=== PATIENT | male | born 1985 | race Caucasian/White ===

== ENCOUNTER → 2016-06-14 | Day surgery (SDC) | payer MEDICAID ==
[~2016-06-14] MED LIST: FLUMAZENIL 0.5 MG/5 ML MDV IVP ONE; IOPAMIDOL (ISOVUE-M 300) 15 ML VIAL IV ONE; MIDAZOLAM 2 MG/2 ML VIAL ONE; NALOXONE HCL 0.4 MG/ML INJ ONE; TRIAMCINOLONE ACETONIDE 200 MG/5 ML MDV IM ONE; fentaNYL 100 MCG/2 ML INJ ONE
--- NOTE | 2016-06-14 18:13 | IR ---
Lumbar epidural steroid injection with fluoroscopic guidance History: Low back pain. Pain in right buttock. Disk abnormality at L5-S1 reported on MRI from [facility] of May 04, 2016. Consent: Risks and benefits of the procedure were discussed in detail. Informed consent was obtained . The patient accepted risks of lack of therapeutic benefit, internal bleeding, infection, and accide ntal dural puncture. Medication: Local anesthetic, only, at the preference of the patient. Technique: With the patient prone, the low back was prepped and draped in sterile fashion. Using [facility] fluor[facility] guidance, 1% Xylocaine was instilled for local anesthetic. A 20-gauge ToPlayrific need le was advanced into the back of the spinal canal via the L5-S1 interlaminar space. Epidural position was confirmed with 2 mL of Isovue M 300. Spot images were obtained before and after injection of 2 m L of Kenalog (80 mg) and 3 mL of preservative-free 1% Xylocaine. The patient tolerated the procedure well. He was allowed to leave the department after a brief observation. Fluoroscopy time in minutes: 0.5 Estimated exposure in milligray: 43.0. Epidurogram: Epidural contrast extends from L5 through S1. Impression: Epidural injection of long acting steroid and rapid acting anesthetic via L5-S1. - - - - - - - - - - - - - - - - - - - - - - - - - - - - - (PQRS measures: Current medications were listed in the medical record, including all known prescripti ons, [id number] medications, herbal medications, and nutritional supplements. Tobacco use: None . Prophylactic antibiotic:Unnecessary. VTE prophylaxis:Unnecessary.)
== END | disposition home or self-care (01) ==
LOC: FIMAGING 14:07
PROVIDERS: ATTEND Family Medicine
PROC: 3E0S33Z Introduction of Anti-inflammatory into Epidural Space, Percutaneous Approach (ICD-10-PCS; principal; 2016-06-14)
DX: M54.5 Low back pain (principal)
CPT/HCPCS: J2250; J2310; J3010; J3301; Q9967

== ENCOUNTER 2017-01-19 13:16 | Emergency (ER) | payer MEDICAID ==
[2017-01-19 13:24] VITALS: RESP 18; TEMP 98.8
[2017-01-19] MEDS ORDERED: AZITHROMYCIN 250 MG TAB PO ONE (13:42)
[2017-01-19] MEDS ORDERED: IPRATROPIUM/ALBUTEROL 3 ML DEYVIAL IH ONE ×2 (13:42→14:35)
[2017-01-19] MEDS ORDERED: predniSONE 20 MG TAB PO ONE (13:42)
[2017-01-19] MEDS ORDERED: IPRATROPIUM/ALBUTEROL 3 ML DEYVIAL ONE (13:42)
--- NOTE | 2017-01-19 13:44 | EDPHY ---
H & P Stated Complaint: Productive cough x 5 days Time Seen by Provider: 01/19/17 13:39 HPI/ROS: CHIEF COMPLAINT: Cough HISTORY OF PRESENT ILLNESS: Patient is a 31-year-old man with a history of mild asthma who comes to the emergency department complaining of a cough for the last 5 days it has now turned to green sputum. He has not used his inhaler for years but did use it today once with minimal improvement. No fever. No chest pain. No GI symptoms. No other significant history. REVIEW OF SYSTEMS: Constitutional: denies: chills, fever, recent illness, recent injury EENTM: denies: blurred vision, double vision, nose congestion Respiratory: See HPI Cardiac: denies: chest pain, irregular heart rate, lightheadedness, palpitations Gastrointestinal/Abdominal: denies: abdominal pain, diarrhea, nausea, vomiting, blood streaked stools Genitourinary: denies: dysuria, frequency, hematuria, pain Musculoskeletal: denies: joint pain, muscle pain Skin: denies: lesions, rash, jaundice, bruising Neurological: denies: headache, numbness, paresthesia, tingling, dizziness, weakness Hematologic/Lymphatic: denies: blood clots, easy bleeding, easy bruising Immunologic/allergic: denies: HIV/AIDS, transplant EXAM: GENERAL: Well-appearing, well-nourished and in no acute distress. HEAD: Atraumatic, normocephalic. EYES: Pupils equal round and reactive to light, extraocular movements intact, sclera anicteric, conjunctiva are normal. ENT: TMs normal, nares patent, oropharynx clear without exudates. Moist mucous membranes. NECK: Normal range of motion, supple without lymphadenopathy or JVD. LUNGS: Bilateral wheezing, decreased air movement HEART: Regular rate and rhythm without murmurs, rubs or gallops. ABDOMEN: Soft, nontender, normoactive bowel sounds. No guarding, no rebound. No masses appreciated. BACK: No CVA tenderness, no spinal tenderness, step-offs or deformities EXTREMITIES: Normal range of motion, no pitting or edema. No clubbing or cyanosis. NEUROLOGICAL: Cranial nerves II through XII grossly intact. Normal speech, normal gait. 5/5 strength, normal movement in all extremities, normal sensation PSYCH: Normal mood, normal affect. SKIN: Warm, dry, normal turgor, no visible rashes or lesions. Source: Patient Exam Limitations: No limitations - Personal History Current Tetanus Diphtheria and Acellular Pertussis (TDAP): Yes - Medical/Surgical History Hx Asthma: No Hx Chronic Respiratory Disease: No Hx Diabetes: No Hx Cardiac Disease: No Hx Renal Disease: No Hx Cirrhosis: No Hx Alcoholism: No Hx HIV/AIDS: No Hx Splenectomy or Spleen Trauma: No Other PMH: BACK PROBLEMS - Family History Significant Family History: No pertinent family hx - Social History Smoking Status: Current every day smoker Alcohol Use: Sober Drug Use: None Constitutional: Initial Vital Signs Temperature (C) 37.1 C 01/19/17 13:20 Heart Rate 102 H 01/19/17 13:20 Respiratory Rate 18 01/19/17 13:20 Blood Pressure 127/83 H 01/19/17 13:20 O2 Sat (%) 96 01/19/17 13:20 O2 Delivery Mode Room Air Allergies/Adverse Reactions: No Known Allergies Allergy (Verified 01/19/17 13:21) Home Medications: Medication Instructions Recorded AZITHROMYCIN [Z-PACK] 250 mg PO DAILY #6 tab 01/19/17 Albuterol [Proventil Inhaler] 1 - 2 puffs IH Q4H #1 mdi 01/19/17 predniSONE 60 mg PO DAILY #15 tab 01/19/17 Medical Decision Making - Diagnostics Imaging: Discussed imaging studies w/ data entry associate Radiologist ED Course/Re-evaluation: 2:30 p.m. the patient is feeling much better. His x-ray is reassuring. I will give him another treatment before discharge. Differential Diagnosis: Partial list of the Differential diagnosis considered include but were not limited to; bronchitis, asthma exacerbation and although unlikely based on the history and physical exam, I also considered pneumonia, PE, acute coronary disease. I discussed these differential diagnoses and the plan with the patient as well as the usual and expected course. The patient understands that the diagnosis is provisional and that in medicine we are not always correct and that further workup is often warranted. Usual and customary warnings were given. All of the patient's questions were answered. The patient was instructed to return to the emergency department should the symptoms at all worsen or return, otherwise to followup with the physician as we discussed. - Data Points Medications Given: Discontinued Medications Albuterol/Ipratropium (Duoneb) 3 ml IH EDNOW ONE Stop: 01/19/17 13:43 Last Admin: 01/19/17 13:46 Dose: 3 ml Albuterol/Ipratropium (Duoneb) 3 ml IH EDNOW ONE Stop: 01/19/17 14:36 Last Admin: 01/19/17 14:36 Dose: 3 ml Azithromycin (Zithromax) 500 mg PO EDNOW ONE PRN Reason: Protocol Stop: 01/19/17 13:43 Last Admin: 01/19/17 13:49 Dose: 500 mg Prednisone (Prednisone) 60 mg PO EDNOW ONE Stop: 01/19/17 13:43 Last Admin: 01/19/17 13:49 Dose: 60 mg Departure - Departure Disposition: Home, Routine, Self-Care Clinical Impression: Acute bronchitis, Exacerbation of asthma Condition: Fair Instructions: Asthma (ED), Acute Bronchitis (ED) Referrals: Ryanne Crouch MD [Primary Care Provider] - As per Instructions Prescriptions: Albuterol [Proventil Inhaler] 1 - 2 puffs IH Q4H #1 mdi AZITHROMYCIN [Z-PACK] 250 mg PO DAILY #6 tab predniSONE 60 mg PO DAILY #15 tab
[2017-01-19 14:58] VITALS: BP 119/70; PULSE 96; O2SAT 95
== END 2017-01-19 14:58 | disposition home or self-care (01) ==
DX: J20.9 Acute bronchitis, unspecified (principal); J45.901 Unspecified asthma with (acute) exacerbation; F17.200 Nicotine dependence, unspecified, uncomplicated

== ENCOUNTER 2018-01-17 09:07 | Emergency (ER) | payer MEDICAID ==
--- NOTE | 2018-01-17 09:43 | EDPHY ---
H & P Stated Complaint: back pain Time Seen by Provider: 01/17/18 09:42 HPI/ROS: HPI: This is a 32-year-old male who presents with Chief Complaint: back pain Location: Neck and lower back Quality: Pain Duration: 1 3 hr upon waking Signs and Symptoms: No bleeding, no radiation, no numbness, no weakness, no tingling, no incontinence, + decreased range of motion, no swelling, + pain, no fever Timing: Acute Severity: Mild Context: Patient is currently at the senior living for work release, working at [employer], presents with complaints of waking up this morning with lower back achiness and decreased range of motion accompanied by pain that is worsened with flexion and extension. Patient also reports"I have a pink in my neck." He denies any radiculopathy/change in bowel or bladder habits/paresthesias. Patient reports that he has a history of L5 disc bulge diagnosed by MRI outpatient in 2017. Chart review shows that in June 2016 lumbar sacral injection was performed by Dr. Dorado. Patient believes that his symptoms occurred from sleeping on the top bunk and the"bad mattress." He has tried nothing for the symptoms. Patient walked to the emergency room from [facility]. Modifying Factors: None Comment: ROS: A comprehensive 10 system review of systems is otherwise negative aside from elements mentioned in the history of present illness. MEDICAL/SURGICAL/SOCIAL HISTORY: Medical history: Back problems, asthma Surgical history: Denies Social history: Current every day smoker CONSTITUTIONAL: Polite and cooperative adult white male, awake and alert, no obvious distress HEENT: Atraumatic and normocephalic. NECK: supple, no midline tenderness, flexion 45 degrees, extension 45 degrees, right and left lateral flexion 45 degrees. No meningismus. Cardiovascular: Normal S1/S2, regular rate, regular rhythm, without murmur rub or gallop. PULMONARY/CHEST: Symmetrical and nontender. no crepitus. Clear to auscultation bilaterally. Good air movement. No accessory muscle usage. ABDOMEN: Soft, nondistended, nontender, no ecchymosis. PELVIC: no pain with rocking; bilateral hips flexion 125 degrees, extension 30 degrees, with no pain internal rotation and no pain external rotation. BACK: No midline tenderness, mild bilateral L1-L2 reproducible paraspinous tenderness. no paraspinous spasm, deep tendon reflexes 2/2, no pain with straight leg raise, No foot drop. Achilles reflexes are equal bilaterally. Able to walk on heels and toes without difficulty. Pain increased with flexion and extension. EXTREMITIES: 2/2 pulses, strength 5/5, DIP/PIP/MCP flexion/extension intact with good light touch sensation. no deformities, no clubbing, no cyanosis or edema. NEUROLOGICAL: no focal neuro deficits. GCS 15. Light touch sensation intact. SKIN: Warm and dry, no erythema. no rash. Good capillary refill. Source: Patient Exam Limitations: No limitations - Personal History Current Tetanus/Diphtheria Vaccine: Unsure Current Tetanus Diphtheria and Acellular Pertussis (TDAP): Unsure - Medical/Surgical History Hx Asthma: Yes Hx Chronic Respiratory Disease: No Hx Diabetes: No Hx Cardiac Disease: No Hx Renal Disease: No Hx Cirrhosis: No Hx Alcoholism: No Hx HIV/AIDS: No Hx Splenectomy or Spleen Trauma: No Other PMH: BACK PROBLEMS, asthma - Social History Smoking Status: Current every day smoker Constitutional: Initial Vital Signs Temperature (C) 37.1 C 01/17/18 09:20 Heart Rate 95 01/17/18 09:20 Respiratory Rate 16 01/17/18 09:20 Blood Pressure 119/82 H 01/17/18 09:20 O2 Sat (%) 96 01/17/18 09:20 O2 Delivery Mode Room Air Allergies/Adverse Reactions: No Known Allergies Allergy (Verified 01/17/18 09:19) Home Medications: Medication Instructions Recorded Albuterol [Proventil Inhaler] 1 - 2 puffs IH Q4H #1 mdi 01/19/17 Cyclobenzaprine [Flexeril 10 MG 10 mg PO TID PRN #12 tab 01/17/18 (*)] methylPREDNISolone [Medrol Dose 1 each PO AD #0 ea 01/17/18 Chas] Medical Decision Making - Diagnostics Imaging Results: Imaging Impressions Cervical Spine X-Ray 01/17/18 09:50 Impression: Normal limited cervical spine series. Lumbar Spine X-Ray 01/17/18 09:50 Impression: Mild levoscoliosis upper lumbar spine. Otherwise, normal limited lumbar spine series. ED Course/Re-evaluation: No neurological deficits to warrant MRI in the emergency room. Cervical x-ray and lumbosacral x-rays performed. Advised patient as he is on work release, will not give opiates or benzodiazepine. Patient given oral medications of Flexeril, ibuprofen, gabapentin, Decadron and Lidoderm patch. Cervical and lumbosacral x-ray my read via PACs shows no acute fracture/ degenerative changes Patient given a prescription for Medrol Dosepak and Flexeril. 1035: Reassessed patient who reports 50% improvement in pain with increased range of motion. Ambulatory at discharge. No signs of neurovascular compromise/tenting of skin/compartment syndrome/ extremities and joints examined above and below area of concern and are neurovascularly intact. This patient was seen under the supervision of my secondary supervising physician. I evaluated care for this patient independently. Discussed this patient with Dr. Hunter. Differential Diagnosis: Back pain including but not limited to muscular pain, herniated disc, spine fracture, intra-abdominal causes and urinary tract infection. - Data Points Medications Given: Miscellaneous Information (Patch Removal) 1 ea TD DAILY21 ONELIA Stop: 07/16/18 20:59 Last Admin: 01/17/18 10:17 Dose: Not Given Discontinued Medications Cyclobenzaprine HCl (Flexeril) 10 mg PO EDNOW ONE Stop: 01/17/18 09:50 Last Admin: 01/17/18 09:54 Dose: 10 mg Dexamethasone (Decadron) 10 mg PO EDNOW ONE Stop: 01/17/18 09:55 Last Admin: 01/17/18 09:58 Dose: 10 mg Gabapentin (Neurontin) 600 mg PO EDNOW ONE Stop: 01/17/18 09:50 Last Admin: 01/17/18 09:54 Dose: 600 mg Ibuprofen (Motrin) 800 mg PO EDNOW ONE Stop: 01/17/18 09:51 Last Admin: 01/17/18 09:54 Dose: 800 mg Miscellaneous Medication (Icy Hot Lidocaine/Menthol 4%/1% Patch) 1 patch TD EDNOW ONE Stop: 01/17/18 09:50 Last Admin: 01/17/18 09:54 Dose: 1 patch Departure - Departure Disposition: Home, Routine, Self-Care Clinical Impression: History of MRI of lumbar spine Lumbar strain Qualifiers: Encounter type: initial encounter Qualified Code(s): S39.012A - Strain of muscle, fascia and tendon of lower back, initial encounter Condition: Good Instructions: Low Back Strain (ED) Additional Instructions: Take Medrol Dosepak as directed. Take Tylenol 650 mg every 4 hours and/or Ibuprofen 600 mg every 8 hours with food as needed for pain. Use Flexeril every 8 hours as needed for muscle spasm. No lifting greater than 10 lb until all symptoms have resolved. Follow up with PCP in 7-10 days if symptoms at which time they will evaluate and recommend with you if conservative management versus MRI is indicated. Referrals: Ryanne Crouch MD [Primary Care Provider] - As per Instructions Stand Alone Forms: Work Excuse Prescriptions: Cyclobenzaprine [Flexeril 10 MG (*)] 10 mg PO TID PRN #12 tab PRN Reason: Spasms methylPREDNISolone [Medrol Dose Chas] 1 each PO AD #0 ea
[2018-01-17] MEDS ORDERED: LIDOCAINE 4%/MENTHOL 1% PATCH TD ONE (09:49)
[2018-01-17] MEDS ORDERED: GABAPENTIN 300 MG CAP PO ONE (09:49)
[2018-01-17] MEDS ORDERED: CYCLOBENZAPRINE 10 MG TAB PO ONE (09:49)
[2018-01-17] MEDS ORDERED: IBUPROFEN 800 MG TAB PO ONE (09:50)
[2018-01-17] MEDS ORDERED: DEXAMETHASONE 4 MG TAB PO ONE (09:54)
[2018-01-17] MEDS ORDERED: DEXAMETHASONE 4 MG TAB ONE (09:57)
[2018-01-17 10:45] VITALS: BP 135/70
[2018-01-17] MEDS ORDERED: PATCH REMOVAL 1 EA PATCH TD SCH (21:00)
== END 2018-01-17 10:44 | disposition home or self-care (01) ==
DX: S39.012A Strain of muscle, fascia and tendon of lower back, initial encounter (principal); M54.2 Cervicalgia; J45.909 Unspecified asthma, uncomplicated; F17.200 Nicotine dependence, unspecified, uncomplicated; X58.XXXA Exposure to other specified factors, initial encounter

== ENCOUNTER 2018-02-16 11:01 | Emergency (ER) | payer MEDICAID ==
[2018-02-16] MEDS ORDERED: IPRATROPIUM/ALBUTEROL 3 ML DEYVIAL IH ONE (11:37)
[2018-02-16] MEDS ORDERED: predniSONE 20 MG TAB PO ONE (11:48)
--- NOTE | 2018-02-16 11:53 | EDPHY ---
H & P Stated Complaint: cough c yellow sputum, body aches, Time Seen by Provider: 02/16/18 11:27 HPI/ROS: CHIEF COMPLAINT: Cough, wheezing HISTORY OF PRESENT ILLNESS: 32-year-old male with asthma presents with cough and wheezing. Onset sore throat and runny does 3 days ago. Associated with subjective fever, a productive cough and gradually increasing shortness of breath. Tolerating oral fluids well. Does not currently have an inhaler. REVIEW OF SYSTEMS: complete 10 point ROS reviewed and is negative except for the noted elements in the HPI - Personal History Current Tetanus/Diphtheria Vaccine: Unsure - Medical/Surgical History Hx Asthma: Yes Hx Chronic Respiratory Disease: No Hx Diabetes: No Hx Cardiac Disease: No Hx Renal Disease: No Hx Cirrhosis: No Hx Alcoholism: No Hx HIV/AIDS: No Hx Splenectomy or Spleen Trauma: No Other PMH: BACK PROBLEMS, asthma - Social History Smoking Status: Current every day smoker - Physical Exam Exam: General Appearance: Alert, pleasant, nontoxic appearing Eyes: Pupils equal and round, no conjunctival injection ENT, Mouth: Mucous membranes moist Neck: Normal inspection Respiratory: Normal respiratory rate, Diffuse expiratory wheezing Cardiovascular: Regular rate and rhythm Gastrointestinal: Abdomen is soft and nontender Neurological: A&O, nonfocal exam Skin: Warm and dry, no rash Extremities: Normal inspection Psychiatric: Mood and affect normal Constitutional: Initial Vital Signs Temperature (C) 36.6 C 02/16/18 11:04 Heart Rate 74 02/16/18 11:04 Respiratory Rate 18 02/16/18 11:04 Blood Pressure 109/69 02/16/18 11:04 O2 Sat (%) 98 02/16/18 11:04 O2 Delivery Mode Room Air Allergies/Adverse Reactions: No Known Allergies Allergy (Verified 02/16/18 11:04) Home Medications: Medication Instructions Recorded Albuterol [Proventil Inhaler] 1 - 2 puffs IH Q4H #1 mdi 01/19/17 Cyclobenzaprine [Flexeril 10 MG 10 mg PO TID PRN #12 tab 01/17/18 (*)] methylPREDNISolone [Medrol Dose 1 each PO AD #0 ea 01/17/18 Chas] Albuterol [Proventil Inhaler HFA 2 puffs IH QID PRN #1 mdi 02/16/18 (*)] Azithromycin [Zithromax] 250 mg PO DAILY #6 tab 02/16/18 predniSONE 1 tab PO DAILY #15 tab 02/16/18 Medical Decision Making ED Course/Re-evaluation: A DuoNeb and prednisone 60 mg orally given. Feels much better after the DuoNeb. Lungs clear to auscultation. Will discharge home. Instructions given. - Data Points Medications Given: Discontinued Medications Albuterol/Ipratropium (Duoneb) 3 ml IH EDNOW ONE Stop: 02/16/18 11:38 Last Admin: 02/16/18 11:42 Dose: 3 ml Prednisone (Prednisone) 60 mg PO EDNOW ONE Stop: 02/16/18 11:49 Last Admin: 02/16/18 11:51 Dose: 60 mg Departure - Departure Disposition: Home, Routine, Self-Care Clinical Impression: Acute bronchitis Qualifiers: Bronchitis organism: unspecified organism Qualified Code(s): J20.9 - Acute bronchitis, unspecified Asthma exacerbation Qualifiers: Asthma severity: moderate Asthma persistence: unspecified Qualified Code(s): J45.901 - Unspecified asthma with (acute) exacerbation Condition: Fair Instructions: Acute Bronchitis (ED), Bronchospasm (ED) Referrals: Ryanne Crouch MD [Primary Care Provider] - As per Instructions Prescriptions: Albuterol [Proventil Inhaler HFA (*)] 2 puffs IH QID PRN #1 mdi PRN Reason: Short Of Breath/Dyspnea Azithromycin [Zithromax] 250 mg PO DAILY #6 tab predniSONE 1 tab PO DAILY #15 tab
[2018-02-16 12:04] VITALS: BP 145/84
== END 2018-02-16 12:02 | disposition home or self-care (01) ==
DX: J20.9 Acute bronchitis, unspecified (principal); J45.901 Unspecified asthma with (acute) exacerbation; F17.200 Nicotine dependence, unspecified, uncomplicated
CPT/HCPCS: J7512